=== PATIENT | male | born 1960 | race Caucasian/White ===

== ENCOUNTER 2019-01-02 23:25 | Emergency (ER) | payer OTHER, MEDICARE ==
[~2019-01-02] VITALS: Ht 180.3 cm; Wt 79.4 kg
[2019-01-02 23:30] VITALS: Ht 180.3 cm; Wt 79.4 kg
[2019-01-03 00:24] LABS: BASOPHIL % 0.8 % (0-2); PLATELET COUNT 217 x10^3mcL (130-400); RED CELL DISTRIBUTION WIDTH 13.6 % (11.5-14.5)
[2019-01-03 00:38] LABS: CALCIUM 8.7 mg/dL (8.5-10.1); CARBON DIOXIDE 29.5 mmol/L (21-32); CHLORIDE SERUM 106 mmol/L (98-107); GFR1 > 60 mL/min; GLUCOSE SERUM 111 mg/dL (74-106); POTASSIUM SERUM 3.9 mmol/L (3.5-5.1); SODIUM SERUM 142 mmol/L (136-145)
[2019-01-03 00:42] LABS: ALKALINE PHOSPHATASE 58 U/L (46-116); ALT/SGPT 24 U/L (16-63); AST/SGOT 17 U/L (15-37); BILIRUBIN TOTAL 0.5 mg/dL (0.20-1.00)
[2019-01-03 00:44] LABS: ALBUMIN 2.9 g/dL (3.4-5.0); TOTAL PROTEIN, SERUM 6.1 g/dL (6.4-8.2)
[2019-01-03 01:57] VITALS: BP 121/71
== END 2019-01-03 01:58 | disposition home or self-care (01) ==
LOC: ED 23:25
PROVIDERS: Emergency Medicine
DX: L03.116 Cellulitis of left lower limb (principal); R22.42 Localized swelling, mass and lump, left lower limb; G89.18 Other acute postprocedural pain; G43.909 Migraine, unspecified, not intractable, without status migrainosus; Z88.6 Allergy status to analgesic agent; Z88.5 Allergy status to narcotic agent; Z88.1 Allergy status to other antibiotic agents; Z88.8 Allergy status to other drugs, medicaments and biological substances
CPT/HCPCS: 36415; J1885; Q0092